=== PATIENT | male | born 1935 | race Caucasian/White ===

== ENCOUNTER → 2016-11-27 | Outpatient (CLI) | payer OTHER ==
[~2016-11-27] MED LIST: ASPEC81 PO; ATOR-26 PO; CRG625 PO; DILT-113 PO; ENAL5TAB83 PO; OXYBUTYNIN CHLORIDE PO
== END | disposition home or self-care (01) ==
LOC: C.PATHSPEC 17:01
PROVIDERS: ATTEND Urology
DX: C67.9 Malignant neoplasm of bladder, unspecified (principal)